=== PATIENT | female | born 1945 | race Caucasian/White ===

== ENCOUNTER 2020-06-25 18:26 | Emergency (ER) | payer MEDICARE, OTHER ==
[~2020-06-25] VITALS: Ht 167.6 cm; Wt 83.9 kg
[2020-06-25] MEDS ORDERED: HYDROCODONE/APAP 5/325MG TABLET ONE (19:30)
[2020-06-25] MEDS ORDERED: ONDANSETRON 4 MG TAB.RAPDIS ONE (19:30)
--- NOTE | 2020-06-25 19:30 | NUR ---
assumed pt care. from previous shift.
--- NOTE | 2020-06-25 19:30 | NUR ---
bibra to er bed 14. aaox4. not in resp distress. brought in for r arm pain w/ deformity. pain is rated 2/10. radial pulse noted
[2020-06-25] MEDS: HYDROCODONE/APAP 5/325MG TABLET PO ONE (19:35)
[2020-06-25] MEDS: ONDANSETRON 4 MG TAB.RAPDIS SL ONE (19:35)
[2020-06-25] MEDS ORDERED: IBUP-1955 PO (20:23)
--- NOTE | 2020-06-25 20:35 | NUR ---
Patient discharged to home in stable condition. Written and verbal after care instructions given. Patient verbalizes understanding of instruction. Pt ambulatory with a steady gait but with a limp.
[2020-06-25 21:36] VITALS: BP 145/85
== END 2020-06-25 20:35 | disposition home or self-care (01) ==
LOC: ER 18:39
DX: S52.591A Other fractures of lower end of right radius, initial encounter for closed fracture (principal); S52.691A Other fracture of lower end of right ulna, initial encounter for closed fracture; M25.561 Pain in right knee; E11.9 Type 2 diabetes mellitus without complications; I10 Essential (primary) hypertension; W18.39XA Other fall on same level, initial encounter; Y93.89 Activity, other specified; Y92.89 Other specified places as the place of occurrence of the external cause; Y99.8 Other external cause status
CPT/HCPCS: 29125; 73090; 73110; 73130; 73564; 99284; Q0162